=== PATIENT | male | born 1950 | race Caucasian/White ===

== ENCOUNTER 2018-07-13 08:13 | Day surgery (SDC) | payer OTHER ==
[2018-07-06 18:02] VITALS: BMI 28.2
[2018-07-13 08:49] VITALS: TEMP 97.6
[2018-07-13] MEDS ORDERED: PROPOFOL 20 ML ONE ×3 (09:04)
[2018-07-13 10:07] VITALS: BP 122/76; PULSE 87
--- NOTE | 2018-07-15 16:36 | PATH ---
Surgical Pathology Report Patient Name: LAZARO LUGO [facility]. Rec. #: [id number] /Age/Gender: 1950 (Age: 67) / M Account: [id number] Location: [facility] Taken: 07/13/2018 Received: 07/13/2018 Reported: 07/15/2018 Physicians: Adna Muhammad M.D. Specimen(s) Received TRANSVERSE COLON Clinical History Colon screening Postoperative diagnosis: Polyp, diverticulosis Final Diagnosis TRANSVERSE COLON, POLYP, BIOPSY: TUBULAR ADENOMA. Electronically Signed Yelena Garduno M.D. Gross Description Received in formalin, labeled "polyp transverse colon" are 4 peralta, irregular portions of soft tissue ranging from 0.2-0.4 cm. in greatest dimension. The specimens are submitted in toto in one cassette. 07/13/201807/13/2018
== END 2018-07-13 10:10 | disposition home or self-care (01) ==
LOC: FASU-ENDO 08:13
PROVIDERS: ATTEND Internal Medicine Gastroenterology
PROC: 0DBL8ZX Excision of Transverse Colon, Via Natural or Artificial Opening Endoscopic, Diagnostic (ICD-10-PCS; principal; 2018-07-13 09:00)
DX: Z86.010 Personal history of colon polyps (principal); Z80.0 Family history of malignant neoplasm of digestive organs; D12.3 Benign neoplasm of transverse colon; K57.30 Diverticulosis of large intestine without perforation or abscess without bleeding
CPT/HCPCS: 88305-TC

== ENCOUNTER 2019-09-21 16:52 | Inpatient (IN) | payer OTHER ==
[2019-09-21] MEDS ORDERED: ACETAMINOPHEN 1000 MG/100 ML VIAL (NON FORMULARY) IVPB ONE (17:48)
--- NOTE | 2019-09-21 17:48 | PDOC ---
History of Present Illness - General Chief Complaint: Injury Stated Complaint: LEFT HIP PAIN Time Seen by Provider: 09/21/19 17:36 History Source: Patient Exam Limitations: No Limitations - History of Present Illness Initial Comments: 09/21/19 17:47 Mr. Siegel is a 68 yo M who presents to the ER with a complaint of hip pain Pt has a past medical history of Afib on coumadin, HTN, HLD, and colon polyps Pt states that he slipped on ice on Friday and fell onto his bottom He denies head trauma, loc, amnesia He denies focal weakness or numbness palpitations, chest pain, vertigo, dizziness prior to falling Since his fall he is noted pain, difficulty with ambulation. He has been using a cane to assist with walking. Since falling actually he is noticed that when he stands he feels dizzy Unfortunately he fell again today. He fell forward landing on his hands Pain is described as sharp, severe when he ambulates, rated 8/10 No radiation down the leg No radiation of the lower back No actual bruising on the skin noted PCP: En, Cardio: Dr. Almaguer PMH: Afib on warfarin, s/p cardioversion x 2, HTN, HLD, colon polyps PSH: Denies Social History: Smoking: pipe, Alcohol: former heavy drinker, Drugs: pt denies Family History: Noncontributory Allergies: PCN --> swelling GENERAL/CONSTITUTIONAL: No: fever, chills, weakness, loss of appetite. HEAD, EYES, EARS, NOSE AND THROAT: No: change in vision, ear pain, discharge, sore throat, throat swelling. CARDIOVASCULAR: No: chest pain, lightheadedness, palpitations, syncope RESPIRATORY: No: cough, shortness of breath, wheezing, hemoptysis, stridor. GASTROINTESTINAL: No: nausea, vomiting, diarrhea, abdominal cramping, rectal bleeding, constipation. GENITOURINARY: No: dysuria, hematuria, frequency, urgency, flank pain. MUSCULOSKELETAL: No: back pain, neck pain, joint pain, muscle swelling or pain SKIN AND BREASTS: No: lesions, pallor, rash or easy bruising. NEUROLOGIC: No: headache, vertigo, paresthesias, weakness ENDOCRINE: No: unexplained weight gain or loss HEMATOLOGIC/LYMPHATIC: No: anemia, easy bleeding, swelling nodes. PE: GENERAL: The patient is in no acute distress. HEAD: Normal with no signs of trauma. EYES: PERRLA, EOMI, sclera anicteric, conjunctiva clear. ENT: Ears normal, nares patent, oropharynx clear without exudates. Moist mucous membranes. NECK: Normal range of motion, no midline tenderness to palpation LUNGS: Breath sounds equal, clear to auscultation bilaterally. No wheezes, and no crackles. HEART: Irregularly irregular, no murmur noted ABDOMEN: Soft, nontender, normoactive bowel sounds. No guarding, no rebound. Pelvis is stable EXTREMITIES: Right lower extremity: Normal range of motion, soft compartments, no difficulty with hip flexion, knee flexion, flexion of the ankles Left lower extremity: Very tight/firm buttock compartment, limited range of motion secondary to pain, sensation intact warm extremities, cap refill less than 2 seconds No lower extremity edema NEUROLOGICAL: Cranial nerves II through XII grossly intact. Normal speech. No focal neurological deficits. MUSCULOSKELETAL: Back non-tender to palpation SKIN: No bruising noted Past History - Past Medical History Allergies/Adverse Reactions: Allergies Allergy/AdvReac Type Severity Reaction Status Date / Time Penicillins Allergy Intermediate Swelling Verified 09/21/19 16:54 Home Medications: Ambulatory Orders Lisinopril 20 mg PO DAILY 09/15/15 Atorvastatin Ca [Lipitor] 10 mg PO DAILY 05/10/18 Carvedilol [Coreg -] 25 mg PO BID 05/10/18 Cholecalciferol (Vitamin D3) [Vitamin D3] 4,000 unit PO DAILY 05/10/18 Hydrochlorothiazide [Hctz -] 25 mg PO DAILY 05/10/18 Warfarin Na [Coumadin -] 7.5 mg PO SUTUWETHSA 05/10/18 Warfarin Na [Coumadin -] 10 mg PO MOFR 05/10/18 Anemia: No Asthma: No Cancer: No Cardiac Disorders: Yes (ATRIAL FIBRILLATION) CVA: No COPD: No CHF: No DVT: No Dementia: No Diabetes: No GI Disorders: Yes (COLONIC POLYPS) Disorders: No HTN: Yes Hypercholesterolemia: Yes Liver Disease: No Psychiatric Problems: Yes (DEPRESSION) Seizures: No Thyroid Disease: No - Surgical History Abdominal Surgery: No Appendectomy: No Cardiac Surgery: Yes (CARDIOVERSION X2) Cholecystectomy: No Lung Surgery: No Neurologic Surgery: No Orthopedic Surgery: No - Immunization History Immunization Up to Date: No - Psycho Social/Smoking Cessation Hx Smoking History: Former smoker Have you smoked in the past 12 months: Yes Number of Cigarettes Smoked Daily: 0 If you are a former smoker, when did you quit?: PIPE SMOKER Cigars Per Day: 0 Information on smoking cessation initiated: Yes 'Breaking Loose' booklet given: 11/15/13 Hx Alcohol Use: No Drug/Substance Use Hx: No Substance Use Type: None Hx Substance Use Treatment: No *Physical Exam - Vital Signs Last Vital Signs Temp Pulse Resp BP Pulse Ox 97.8 F 95 H 18 151/80 100 09/21/19 16:52 09/21/19 16:52 09/21/19 16:52 09/21/19 16:52 09/21/19 16:52 ED Treatment Course - LABORATORY CBC & Chemistry Diagram: 09/22/19 07:20 09/22/19 07:20 - RADIOLOGY Radiology Studies Ordered: Category Date Time Status HIP & PELVIS-LEFT [RAD] Stat Radiology 09/21/19 17:03 Ordered Medical Decision Making - Medical Decision Making 09/21/19 17:56 Mr. Siegel is a 68-year-old gentleman with a history of A. fib on Coumadin who is status post a fall on Friday Patient's examination is concerning for a muscular hematoma It is not clear to me if patient's pain and difficulty ambulation is secondary to hematoma of the buttock and thigh Or If patient's hematoma is secondary to an occult fracture which is what is actually making it difficult for her to ambulate In addition Patient is dizzy with standing Unclear if this is secondary to orthostasis due to anemia Therefore: Will do lab EKG X-ray pelvis CT head Tylenol IV for pain Reassess 09/21/19 18:45 Laboratory Tests 09/21/19 09/21/19 18:15 18:15 WBC 13.8 H Hgb 11.1 L Hct 32.1 L D Plt Count 209 INR 6.28 H* CMP pending CT pending Pt signed out to Dr. Galeana Discharge - Discharge Information Problems reviewed: Yes Clinical Impression/Diagnosis: Warfarin-induced coagulopathy Traumatic hematoma of buttock Qualifiers: Encounter type: initial encounter Qualified Code(s): S30.0XXA - Contusion of lower back and pelvis, initial encounter Condition: Stable - Follow up/Referral - Patient Discharge Instructions - Post Discharge Activity
[2019-09-21] MEDS ORDERED: ACETAMINOPHEN INJECTION 100 ML IVPB ONE (18:19)
[2019-09-21 18:30] LABS: BASO % 0.1 % (0-2.0); HEMATOCRIT 32.1 % (35.4-49); HEMOGLOBIN 11.1 GM/dl (11.7-16.9); LYMPH % 3.8 % (8-40); MCH 29.4 pg (25.7-33.7); MCHC 34.6 g/dl (32.0-35.9); MEAN CELL VOLUME 85.1 fl (80-96); MEAN PLT VOLUME 7.9 fl (7.5-11.1); MONO % 7.8 % (3.8-10.2); NEUT % 88.3 % (42.8-82.8); PLATELET COUNT 209 K/MM3 (134-434); RBC 3.77 M/mm3 (4.00-5.60); RDW 13.9 % (11.9-15.9); WHITE BLOOD COUNT 13.8 K/mm3 (4.0-10.8)
[2019-09-21 18:40] LABS: PROTHROMBIN TIME (PATIENT) 67.8 SEC (10.2-13.0)
[2019-09-21 18:43] LABS: INR 6.28 (0.82-1.09)
[2019-09-21 18:45] LABS: ALBUMIN 3.4 g/dl (3.4-5.0); CALCIUM 8.3 mg/dl (8.5-10); POTASSIUM 3.4 mmol/L (3.5-5.1); TOT PROT 6.1 g/dl (6.4-8.2)
--- NOTE | 2019-09-21 19:40 | PDOC ---
*Physical Exam - Vital Signs Last Vital Signs Temp Pulse Resp BP Pulse Ox 97.8 F 69 18 127/81 98 09/21/19 16:52 09/21/19 18:34 09/21/19 18:34 09/21/19 18:34 09/21/19 18:34 ED Treatment Course - LABORATORY CBC & Chemistry Diagram: 09/21/19 18:15 09/21/19 18:15 - ADDITIONAL ORDERS Additional order review: Laboratory Results 09/21/19 09/21/19 09/21/19 18:15 18:15 18:15 PT with INR 67.8 H INR 6.28 H* Sodium 138 Potassium 3.4 L Chloride 104 Carbon Dioxide 27 Anion Gap 7 L BUN 22.0 H Creatinine 1.0 Est GFR (CKD-EPI)AfAm 89.23 Est GFR (CKD-EPI)NonAf 76.99 Random Glucose 133 H Calcium 8.3 L Total Bilirubin 1.0 AST 18 ALT 13 Alkaline Phosphatase 52 Creatine Kinase 217 Creatine Kinase Index 1.0 CK-MB (CK-2) 2.2 Troponin I < 0.03 Total Protein 6.1 L Albumin 3.4 09/21/19 18:15 RBC 3.77 L MCV 85.1 MCHC 34.6 RDW 13.9 MPV 7.9 Neutrophils % 88.3 H Lymphocytes % 3.8 L D Monocytes % 7.8 Eosinophils % 0.0 D Basophils % 0.1 - Medications Given in the ED: ED Medications Discontinued Medications Generic Name Dose Route Start Last Admin Trade Name Freq PRN Reason Stop Dose Admin Acetaminophen 1,000 mg 09/21/19 17:48 09/21/19 18:58 Ofirmev Injection - IVPB 09/21/19 17:49 1,000 mg ONCE ONE Administration Medical Decision Making - Medical Decision Making 09/21/19 21:00 Care of this patient received from Dr. Ye. He is undergoing evaluation of painful swelling in the left buttock after a fall 2 days ago. The patient has supratherapeutic INR of 6.28. Patient has some residual pain after IV acetaminophen. Small dose of morphine (2 mg IV) given prior to pelvic CT with IV contrast. 09/21/19 22:40 Interpretation of the pelvic CT with IV contrast by Dr. Davila of the radiology staff: Asymmetric enlargement of left buttock muscle with heterogeneous attenuation and small hyperdense foci compatible with a clinical history of a large hematoma. No drainable collection identified /no gross fracture identified. Because patient has supratherapeutic INR with bleeding into his buttock muscle, vitamin K 5 mg IVPB administered He continues to have pain after morphine 2 mg IV dose 09/21/19 23:50 Case discussed with TARA Ness; patient will be admitted to Dr. Dozier's service for continued observation, monitoring of INR, pain control. Patient feels significant decrease in pain after morphine 4 mg IV; IV hydration with normal saline continues Discharge - Discharge Information Problems reviewed: Yes Clinical Impression/Diagnosis: Warfarin-induced coagulopathy Traumatic hematoma of buttock Qualifiers: Encounter type: initial encounter Qualified Code(s): S30.0XXA - Contusion of lower back and pelvis, initial encounter Condition: Stable - Admission Yes - Follow up/Referral Referrals: Larry Gatica MD [Primary Care Provider] - - Patient Discharge Instructions - Post Discharge Activity
[2019-09-21] MEDS ORDERED: morphine CARPU-JECT 2 MG/1 ML DISP.SYRIN IVPUSH ONE (20:36)
[2019-09-21] MEDS ORDERED: morphine SULFATE 4 MG/ML VIAL ONE ×2 (20:40→22:46)
[2019-09-21] MEDS ORDERED: PHYTONADIONE 10 MG/1 ML AMP IVPB ONE (22:39)
[2019-09-21] MEDS ORDERED: PHYTONADIONE 10 MG/1 ML AMP ONE (22:46)
[2019-09-21] MEDS ORDERED: morphine CARPU-JECT 4 MG/1 ML DISP.SYRIN IVPUSH ONE (23:15)
[2019-09-21] MEDS ORDERED: SODIUM CHLORIDE 1,000 ML IV STA (23:30)
[2019-09-22] MEDS ORDERED: POTASSIUM CHLORIDE TABS 20 MEQ TABLET.ER (FP) PO ONE (00:31)
[2019-09-22] MEDS: POTASSIUM CHLORIDE TABS 20 MEQ TABLET.ER (FP) PO SCH ×2 (00:36→05:54)
[2019-09-22 01:04] VITALS: BMI 29.8
[2019-09-22] MEDS: oxyCODONE HCL 5 MG TABLET PO PRN ×4 (01:11→23:54)
[2019-09-22 08:05] LABS: BASO % 0.2 % (0-2.0); EOS % 0.1 % (0-4.5); HEMATOCRIT 27.7 % (35.4-49); HEMOGLOBIN 9.3 GM/dl (11.7-16.9); LYMPH % 8.8 % (8-40); MCH 28.7 pg (25.7-33.7); MCHC 33.5 g/dl (32.0-35.9); MEAN CELL VOLUME 85.8 fl (80-96); MEAN PLT VOLUME 8.7 fl (7.5-11.1); MONO % 11.5 % (3.8-10.2); NEUT % 79.4 % (42.8-82.8); PLATELET COUNT 207 K/MM3 (134-434); RBC 3.22 M/mm3 (4.00-5.60); RDW 13.8 % (11.9-15.9)
[2019-09-22 08:12] LABS: CALCIUM 7.9 mg/dl (8.5-10); CREATININE 0.9 mg/dl (0.55-1.3); MAGNESIUM 2.2 mg/dL (1.8-2.4); PHOSPHOROUS 2.4 mg/dl (2.5-4.9); POTASSIUM 3.7 mmol/L (3.5-5.1)
[2019-09-22 08:34] LABS: INR 2.07 (0.82-1.09); PROTHROMBIN TIME (PATIENT) 22.9 SEC (10.2-13.0)
[2019-09-22] MEDS: HYDROCHLOROTHIAZIDE 25 MG TABLET (FP) PO SCH (10:03)
[2019-09-22] MEDS: CARVEDILOL 25 MG TABLET (FP) PO SCH ×2 (10:03→21:32)
[2019-09-22] MEDS: LISINOPRIL 10 MG TABLET (FP) PO SCH (10:03)
[2019-09-22] MEDS: ACETAMINOPHEN 325 MG TABLET (FP) PO PRN ×3 (10:04→23:55)
--- NOTE | 2019-09-22 10:06 | HP ---
Documentation entered by Tere Skinner SCRIBE, acting as scribe for Antoinette Shukla NP. CHIEF COMPLAINT: Left hip pain PCP: Cardiology: Dr. Almaguer HISTORY OF PRESENT ILLNESS: 68 year-old male with a PMH significant for atrial fibrillation on coumadin who presented to the ED for evaluation following two falls. The first fall was on 09/19, he slipped on the ice and fell on his left buttock/hip. He fell a second time on 09/21. He fell forward landing on his hands. On neither occasion did he hit his head and there was no LOC. Patient describes the pain in his left hip as sharp and severe with ambulation, 04/10. It does not radiate. He has experienced lightheadedness with standing. ER course was notable for: (1) WBC 13.8k (2) Hgb 11.1 (baseline 15.8) (3) INR 6.2 Recent Travel: None reported. PAST MEDICAL HISTORY: Hypertension Hyperlipidemia Atrial fibrillation Colon polyps PAST SURGICAL HISTORY: Cardioversion x 2 Social History: Patient is a retired traveling storekeeper. Smoking: pipe Alcohol: former heavy drinker Drugs: denies Family history: Mother age 84, kidney disease, h/o HTN Father age 75, MIs, CHF Brother in his 50s, cardiac: enlarged heart and HF One brother alive with HTN, one alive and well Allergies Penicillins Allergy (Intermediate, Verified 09/21/19 16:54) Swelling HOME MEDICATIONS: Home Medications Medication Instructions Recorded Lisinopril 20 mg PO DAILY 09/15/15 Atorvastatin Ca [Lipitor] 10 mg PO DAILY 05/10/18 Carvedilol [Coreg -] 25 mg PO BID 05/10/18 Cholecalciferol (Vitamin D3) 4,000 unit PO DAILY 05/10/18 [Vitamin D3] Hydrochlorothiazide [Hctz -] 25 mg PO DAILY 05/10/18 Warfarin Na [Coumadin -] 7.5 mg PO SUTUWETHSA 05/10/18 Warfarin Na [Coumadin -] 10 mg PO MOFR 05/10/18 REVIEW OF SYSTEMS CONSTITUTIONAL: Absent: fever, chills, diaphoresis, generalized weakness, malaise, loss of appetite, weight change HEENT: Absent: rhinorrhea, nasal congestion, throat pain, throat swelling, difficulty swallowing, mouth swelling, ear pain, eye pain, visual changes CARDIOVASCULAR: Absent: chest pain, syncope, palpitations, irregular heart rate, lightheadedness , peripheral edema RESPIRATORY: Absent: cough, shortness of breath, dyspnea with exertion, orthopnea, wheezing, stridor, hemoptysis GASTROINTESTINAL: Absent: abdominal pain, abdominal distension, nausea, vomiting, diarrhea, constipation, melena, hematochezia GENITOURINARY: Absent: dysuria, frequency, urgency, hesitancy, hematuria, flank pain, genital pain MUSCULOSKELETAL:+hip pain. Absent: myalgia, arthralgia, joint swelling, back pain, neck pain SKIN: Absent: rash, itching, pallor HEMATOLOGIC/IMMUNOLOGIC: Absent: easy bleeding, easy bruising, lymphadenopathy, frequent infections ENDOCRINE: Absent: unexplained weight gain, unexplained weight loss, heat intolerance, cold intolerance NEUROLOGIC: Absent: headache, focal weakness or paresthesias, dizziness, unsteady gait, seizure, mental status changes, bladder or bowel incontinence PSYCHIATRIC: Absent: anxiety, depression, suicidal or homicidal ideation, hallucinations. PHYSICAL EXAMINATION Vital Signs - 24 hr 09/21/19 09/21/19 09/21/19 16:52 18:34 20:50 Temperature 97.8 F Pulse Rate 95 H Pulse Rate [ 69 98 H Left Apical] Respiratory 18 18 19 Rate Blood Pressure 151/80 Blood Pressure 127/81 153/99 [Right Arm] O2 Sat by Pulse 100 98 99 Oximetry (%) 09/21/19 09/22/19 09/22/19 23:15 00:48 00:55 Temperature 98.1 F Pulse Rate 100 H Pulse Rate [ 102 H Left Apical] Respiratory 15 16 Rate Blood Pressure 152/84 Blood Pressure 140/91 [Right Arm] O2 Sat by Pulse 100 99 Oximetry (%) 09/22/19 09/22/19 04:00 06:13 Temperature 98.2 F Pulse Rate 96 H Pulse Rate [ Left Apical] Respiratory 18 Rate Blood Pressure 114/63 Blood Pressure [Right Arm] O2 Sat by Pulse 99 Oximetry (%) GENERAL: Awake, alert, and fully oriented, in no acute distress. HEAD: Normal with no signs of trauma. EYES: Pupils equal, round and reactive to light, extraocular movements intact, sclera anicteric, conjunctiva clear. LUNGS: Breath sounds equal, clear to auscultation bilaterally. No wheezes, and no crackles. No accessory muscle use. HEART: Regular rate and rhythm, normal S1 and S2 ABDOMEN: Soft, nontender, not distended MUSCULOSKELETAL: Normal range of motion at all joints. No bony deformities or tenderness. No CVA tenderness. UPPER EXTREMITIES: 2+ pulses, warm, well-perfused. No cyanosis. No clubbing. No peripheral edema. LOWER EXTREMITIES: 2+ pulses, warm, well-perfused. No calf tenderness. No peripheral edema; left buttock is swollen and firm, no skin discoloration of buttock or LLE NEUROLOGICAL: Cranial nerves II-XII intact. Normal speech. Laboratory Results - last 24 hr 09/21/19 09/21/19 09/21/19 18:15 18:15 18:15 WBC 13.8 H RBC 3.77 L Hgb 11.1 L Hct 32.1 L D MCV 85.1 MCH 29.4 MCHC 34.6 RDW 13.9 Plt Count 209 MPV 7.9 Absolute Neuts (auto) 12.2 Neutrophils % 88.3 H Lymphocytes % 3.8 L D Monocytes % 7.8 Eosinophils % 0.0 D Basophils % 0.1 PT with INR INR Sodium 138 Potassium 3.4 L Chloride 104 Carbon Dioxide 27 Anion Gap 7 L BUN 22.0 H Creatinine 1.0 Est GFR (CKD-EPI)AfAm 89.23 Est GFR (CKD-EPI)NonAf 76.99 Random Glucose 133 H Calcium 8.3 L Phosphorus Magnesium Total Bilirubin 1.0 AST 18 ALT 13 Alkaline Phosphatase 52 Creatine Kinase 217 Creatine Kinase Index 1.0 CK-MB (CK-2) 2.2 Troponin I < 0.03 Total Protein 6.1 L Albumin 3.4 Alcohol, Quantitative Blood Type Antibody Screen 09/21/19 09/21/19 09/22/19 18:15 18:15 01:00 WBC RBC Hgb Hct MCV MCH MCHC RDW Plt Count MPV Absolute Neuts (auto) Neutrophils % Lymphocytes % Monocytes % Eosinophils % Basophils % PT with INR 67.8 H INR 6.28 H* Sodium Potassium Chloride Carbon Dioxide Anion Gap BUN Creatinine Est GFR (CKD-EPI)AfAm Est GFR (CKD-EPI)NonAf Random Glucose Calcium Phosphorus Magnesium Total Bilirubin AST ALT Alkaline Phosphatase Creatine Kinase Creatine Kinase Index CK-MB (CK-2) Troponin I Total Protein Albumin Alcohol, Quantitative < 3 Blood Type A POSITIVE Antibody Screen Negative 09/22/19 09/22/19 07:20 07:20 WBC 13.0 H RBC 3.22 L Hgb 9.3 L Hct 27.7 L MCV 85.8 MCH 28.7 MCHC 33.5 RDW 13.8 Plt Count 207 MPV 8.7 D Absolute Neuts (auto) 10.4 Neutrophils % 79.4 Lymphocytes % 8.8 D Monocytes % 11.5 H Eosinophils % 0.1 D Basophils % 0.2 PT with INR INR Sodium 133 L Potassium 3.7 Chloride 104 Carbon Dioxide 26 Anion Gap 3 L BUN 22.0 H Creatinine 0.9 Est GFR (CKD-EPI)AfAm 101.36 Est GFR (CKD-EPI)NonAf 87.45 Random Glucose 115 H Calcium 7.9 L Phosphorus 2.4 L Magnesium 2.2 Total Bilirubin AST ALT Alkaline Phosphatase Creatine Kinase Creatine Kinase Index CK-MB (CK-2) Troponin I Total Protein Albumin Alcohol, Quantitative Blood Type Antibody Screen ASSESSMENT/PLAN: 68 year-old male with a PMH significant for atrial fibrillation on coumadin with a supratherapeutic INR s/p two falls. Admitted for left buttock hematoma. Left buttock hematoma s/p fall while on anticoagulant --09/21 CT pelvis: asymmetric enlargement of left buttock muscles with large hematoma; no gross organized drainable collection or hematoma --surgery consult requested --warm compresses q2h --PO meds for pain Elevated INR --INR 6.2 on admission, given one dose Vit K in ED, now 2.08 --hold anti-coagulation --recheck INR Anemia secondary to bleeding in setting of fall on anticoagulation --monitor h/h DVT prophylaxis: INR supratherapeutic, hold coumadin Visit type - Emergency Visit Emergency Visit: Yes ED Registration Date: 09/21/19 Care time: The patient presented to the Emergency Department on the above date and was hospitalized for further evaluation of their emergent condition. - New Patient This patient is new to me today: Yes Date on this admission: 09/25/19 - Critical Care Critical Care patient: No Antoinette Shukla, BANK CASHIER: This documentation has been prepared by the Brody cho Maria, SCRIBE, under my direction and personally reviewed by me in its entirety. I confirm that the documentation accurately reflects all work, treatment, procedures, and medical decision making performed by me.
--- NOTE | 2019-09-22 10:29 | EKG ---
Test Reason : Blood Pressure : / mmHG Vent. Rate : 095 BPM Atrial Rate : 104 BPM P-R Int : 000 ms QRS Dur : 108 ms QT Int : 364 ms P-R-T Axes : 000 -36 041 degrees QTc Int : 457 ms ATRIAL FIBRILLATION WITH PREMATURE VENTRICULAR OR ABERRANTLY CONDUCTED COMPLEXES LEFT AXIS DEVIATION INCOMPLETE RIGHT BUNDLE BRANCH BLOCK SEPTAL INFARCT (CITED ON OR BEFORE 11-MAY-2018) ABNORMAL ECG WHEN COMPARED WITH ECG OF 11-MAY-2018 06:09, QUESTIONABLE CHANGE IN INITIAL FORCES OF SEPTAL LEADS Confirmed by PEEWEE SAMPSON MD ([id number]) on 09/22/2019 10:29:17 AM Referred By: DR GREGG Confirmed By:PEEWEE SAMPSON MD
--- NOTE | 2019-09-22 16:00 | CONSULT ---
- Consultation REQUESTING PROVIDER: Vazquez Gericare Aide Teacher CONSULT REQUEST: We have been asked to surgically evaluate this patient for e/m of a right buttock hematoma. PCP:Antoinette Shukla HISTORY OF PRESENT ILLNESS: KEEGAN who is a 68 y/o male on Coumadin who slipped on the ice and fell on his left side; he did not hit his head/have LOC nor sustain any fx's. h/e he developed a painful left buttock mass clinically and radiographically c/w a buttock hematoma. PMHx: HTN/HLD/CAD/A fib PSHx: none Home Medications Medication Instructions Recorded Lisinopril 20 mg PO DAILY 09/15/15 Atorvastatin Ca [Lipitor] 10 mg PO DAILY 05/10/18 Carvedilol [Coreg -] 25 mg PO BID 05/10/18 Cholecalciferol (Vitamin D3) 4,000 unit PO DAILY 05/10/18 [Vitamin D3] Hydrochlorothiazide [Hctz -] 25 mg PO DAILY 05/10/18 Warfarin Na [Coumadin -] 7.5 mg PO SUTUWETHSA 05/10/18 Warfarin Na [Coumadin -] 10 mg PO MOFR 05/10/18 Allergies Allergy/AdvReac Type Severity Reaction Status Date / Time Penicillins Allergy Intermediate Swelling Verified 09/21/19 16:54 REVIEW OF SYSTEMS: CONSTITUTIONAL: Absent: fever, chills, diaphoresis, generalized weakness, malaise, loss of appetite, weight change CARDIOVASCULAR: Absent: chest pain, syncope, palpitations, irregular heart rate, lightheadedness , peripheral edema RESPIRATORY: Absent: cough, shortness of breath, dyspnea with exertion, wheezing, stridor, hemoptysis GASTROINTESTINAL: Absent: abdominal pain, abdominal distension, nausea, vomiting, diarrhea, constipation, melena, hematochezia GENITOURINARY: Absent: dysuria, frequency, urgency, hesitancy, hematuria, flank pain, genital pain MUSCULOSKELETAL: Absent: myalgia, arthralgia, joint swelling, back pain, neck pain SKIN: Absent: rash, itching, pallor HEMATOLOGIC/IMMUNOLOGIC: Absent: easy bleeding, easy bruising, lymphadenopathy NEUROLOGIC: Absent: headache, focal weakness, paresthesias, dizziness, unsteady gait, seizure, mental status changes, bladder or bowel incontinence PSYCHIATRIC: Absent: anxiety, depression, suicidal or homicidal ideation, hallucinations. PHYSICAL EXAM: GENERAL: Awake, alert, and fully oriented, in no acute distress. HEAD: Normal with no signs of trauma. EYES: PERRL, sclera anicteric, conjunctiva clear. NECK: Normal ROM, supple without lymphadenopathy, JVD, or masses. ABDOMEN: Soft, nontender, not distended, normoactive bowel sounds, no guarding, no rebound, no masses. No organomegaly. MUSCULOSKELETAL: Normal ROM at all joints. No bony deformities or tenderness. No CVA tenderness. UPPER EXTREMITIES: 2+ pulses, warm, well-perfused. No cyanosis. Cap refill <2 seconds. No peripheral edema. LOWER EXTREMITIES: 2+ pulses, warm, well-perfused. No calf tenderness. No peripheral edema. NEUROLOGICAL: Normal speech, gait not observed. PSYCH: Cooperative. Good eye contact. Appropriate mood and affect. SKIN: Warm, dry, normal turgor, no rashes or lesions noted. BUTTOCK: left skin normal w/r/t/t/t and color; no ecchymosis; firm mass present c/w deep hematoma; o/w negative; area is fim and ttp. Vital Signs Temperature 97.7 F 09/22/19 14:00 Pulse Rate 85 09/22/19 14:00 Respiratory Rate 19 09/22/19 14:00 Blood Pressure 92/50 L 09/22/19 14:00 O2 Sat by Pulse Oximetry (%) 100 09/22/19 14:00 Lab Results WBC 13.0 K/mm3 (4.0-10.8) H 09/22/19 07:20 RBC 3.22 M/mm3 (4.00-5.60) L 09/22/19 07:20 Hgb 9.3 GM/dl (11.7-16.9) L 09/22/19 07:20 Hct 27.7 % (35.4-49) L 09/22/19 07:20 MCV 85.8 fl (80-96) 09/22/19 07:20 MCHC 33.5 g/dl (32.0-35.9) 09/22/19 07:20 RDW 13.8 % (11.9-15.9) 09/22/19 07:20 Plt Count 207 K/MM3 (134-434) 09/22/19 07:20 Sodium 133 mmol/L (136-145) L 09/22/19 07:20 Potassium 3.7 mmol/L (3.5-5.1) 09/22/19 07:20 Chloride 104 mmol/L (98-107) 09/22/19 07:20 Carbon Dioxide 26 mmol/L (21-32) 09/22/19 07:20 Anion Gap 3 MMOL/L (8-16) L 09/22/19 07:20 BUN 22.0 mg/dl (7-18) H 09/22/19 07:20 Creatinine 0.9 mg/dl (0.55-1.3) 09/22/19 07:20 Random Glucose 115 mg/dl (74-106) H 09/22/19 07:20 Calcium 7.9 mg/dl (8.5-10) L 09/22/19 07:20 Blood Type A POSITIVE 09/22/19 06:55 Antibody Screen Negative 09/22/19 06:55 INR 2.07 (0.82-1.09) H 09/22/19 07:20 CT scan a/p reviewed. IMP; left buttock hematoma post traumatic in nature and exacerbated by anticoagulation/elevated INR. PLAN: Provide for analgesia; monitor h/h; moist heat; hold/reverse elevated INR. Nicola Mckenna MD FACS/
[2019-09-22] MEDS ORDERED: WARFARIN NA 5 MG TABLET (UD) PO SCH (18:00)
[2019-09-22] MEDS: ATORVASTATIN CA 10 MG TABLET (FP) PO SCH (21:32)
[2019-09-23] MEDS ORDERED: SODIUM CHLORIDE 1,000 ML IV STA ×2 (10:15→11:47)
[2019-09-23 10:58] LABS: BASO % 0.3 % (0-2.0); HEMATOCRIT 23.6 % (35.4-49); LYMPH % 11.6 % (8-40); MCH 28.8 pg (25.7-33.7); MCHC 33.5 g/dl (32.0-35.9); MEAN CELL VOLUME 85.9 fl (80-96); MEAN PLT VOLUME 7.9 fl (7.5-11.1); MONO % 9.1 % (3.8-10.2); PLATELET COUNT 204 K/MM3 (134-434); RBC 2.75 M/mm3 (4.00-5.60); RDW 14.3 % (11.9-15.9); WHITE BLOOD COUNT 8.6 K/mm3 (4.0-10.8)
[2019-09-23 10:59] LABS: INR 1.48 (0.82-1.09); PROTHROMBIN TIME (PATIENT) 16.4 SEC (10.2-13.0)
[2019-09-23 11:03] LABS: ALBUMIN 2.7 g/dl (3.4-5.0); BILIRUBIN,TOTAL 0.8 mg/dl (0.2-1); CALCIUM 8.3 mg/dl (8.5-10); CREATININE 1.1 mg/dl (0.55-1.3); POTASSIUM 3.7 mmol/L (3.5-5.1)
[2019-09-23 11:16] LABS: HEMOGLOBIN 7.9 GM/dl (11.7-16.9)
[2019-09-23] MEDS ORDERED: FUROSEMIDE 40 MG/4 ML INJECTABLE VIAL IVPUSH ONE (17:02)
--- NOTE | 2019-09-23 17:03 | PN ---
Documentation entered by Tere Skinner SCRIBE, acting as scribe for Antoinette Shukla NP. Physical Exam: SUBJECTIVE: Patient seen and examined at bedside. Pt reports he is able to move around a little bit more than yesterday. He describes his pain as a 2-3 in severity. OBJECTIVE: Vital Signs Period Temp Pulse Resp BP Sys/Toussaint Pulse Ox Last 24 Hr 97.7 F-98.3 F 85-98 17-19 92-109/50-70 97-100 GENERAL: Awake, alert, and fully oriented, in no acute distress. HEAD: Normal with no signs of trauma. EYES: Pupils equal, round and reactive to light, extraocular movements intact, sclera anicteric, conjunctiva clear. LUNGS: Breath sounds equal, clear to auscultation bilaterally. No wheezes, and no crackles. No accessory muscle use. HEART: Regular rate and rhythm, normal S1 and S2 ABDOMEN: Soft, nontender, not distended MUSCULOSKELETAL: Normal range of motion at all joints. No bony deformities or tenderness. No CVA tenderness. UPPER EXTREMITIES: 2+ pulses, warm, well-perfused. No cyanosis. No clubbing. No peripheral edema. LOWER EXTREMITIES: 2+ pulses, warm, well-perfused. No calf tenderness. No peripheral edema; left buttock is swollen and firm, evolving ecchymosis left lateral thigh Laboratory Results - last 24 hr 09/22/19 09/22/19 06:55 07:20 PT with INR 22.9 H INR 2.07 H Blood Type A POSITIVE Antibody Screen Negative Active Medications Generic Name Dose Route Start Last Admin Trade Name Freq PRN Reason Stop Dose Admin Acetaminophen 650 mg 09/21/19 23:59 09/22/19 23:55 Tylenol - PO 650 mg Q6H PRN Administration PAIN LEVEL 1-5 Atorvastatin Calcium 10 mg 09/22/19 22:00 09/22/19 21:32 Lipitor - PO 10 mg HS [facility] Administration Carvedilol 25 mg 09/22/19 10:00 09/22/19 21:32 Coreg - PO 25 mg BID [facility] Administration Hydrochlorothiazide 25 mg 09/22/19 10:00 09/22/19 10:03 Hctz - PO 25 mg DAILY [facility] Administration Lisinopril 20 mg 09/22/19 10:00 09/22/19 10:03 Prinivil PO 20 mg DAILY [facility] Administration Oxycodone HCl 5 mg 09/21/19 23:59 09/22/19 23:54 Roxicodone - PO 5 mg Q6H PRN Administration PAIN LEVEL 6-10 Warfarin Sodium 5 mg 09/22/19 18:00 09/22/19 21:32 Coumadin - PO 5 mg DAILY@1800 D[facility] Administration ASSESSMENT/PLAN: 68 year-old male with a PMH significant for atrial fibrillation on coumadin with a supratherapeutic INR s/p two falls. Admitted for left buttock hematoma. Left buttock hematoma s/p fall while on anticoagulant --09/21 CT pelvis: asymmetric enlargement of left buttock muscles with large hematoma; no gross organized drainable collection or hematoma --seen and evaluated by surgery: no surgical intervention at this time --warm compresses q2h --pain management Elevated INR --INR 6.2 on admission, given one dose Vit K in ED, now 1.48 --daily INR checks Anemia secondary to bleeding in setting of fall on anticoagulation --h/h stable, restart coumadin DVT prophylaxis: INR supratherapeutic, hold coumadin Visit type - Emergency Visit Emergency Visit: Yes ED Registration Date: 09/21/19 Care time: The patient presented to the Emergency Department on the above date and was hospitalized for further evaluation of their emergent condition. - New Patient This patient is new to me today: No - Critical Care Critical Care patient: No Antoinette Shukla, [employer]: This documentation has been prepared by the Brody cho Maria, SCRIBE, under my direction and personally reviewed by me in its entirety. I confirm that the documentation accurately reflects all work, treatment, procedures, and medical decision making performed by me.
[2019-09-23] MEDS ORDERED: WARFARIN NA 7.5 MG TABLET (FP) PO SCH (18:00)
[2019-09-23] MEDS: CARVEDILOL 25 MG TABLET (FP) PO SCH (21:05)
[2019-09-23] MEDS: oxyCODONE HCL 5 MG TABLET PO PRN (21:07)
[2019-09-23] MEDS: ACETAMINOPHEN 325 MG TABLET (FP) PO PRN (21:08)
[2019-09-23] MEDS: ATORVASTATIN CA 10 MG TABLET (FP) PO SCH (21:08)
[2019-09-24 07:33] LABS: BASO % 0.3 % (0-2.0); EOS % 3.3 % (0-4.5); HEMATOCRIT 26.2 % (35.4-49); HEMOGLOBIN 8.7 GM/dl (11.7-16.9); LYMPH % 11.9 % (8-40); MCH 29.1 pg (25.7-33.7); MCHC 33.3 g/dl (32.0-35.9); MEAN CELL VOLUME 87.5 fl (80-96); MEAN PLT VOLUME 8.1 fl (7.5-11.1); MONO % 10.1 % (3.8-10.2); NEUT % 74.4 % (42.8-82.8); PLATELET COUNT 163 K/MM3 (134-434); RBC 2.99 M/mm3 (4.00-5.60); RDW 13.8 % (11.9-15.9); WHITE BLOOD COUNT 7.4 K/mm3 (4.0-10.8)
[2019-09-24 07:55] LABS: ALBUMIN 2.7 g/dl (3.4-5.0); BILIRUBIN,TOTAL 1.6 mg/dl (0.2-1); CALCIUM 8.1 mg/dl (8.5-10); CREATININE 0.9 mg/dl (0.55-1.3); POTASSIUM 3.7 mmol/L (3.5-5.1)
[2019-09-24 08:39] LABS: INR 1.93 (0.82-1.09); PROTHROMBIN TIME (PATIENT) 21.3 SEC (10.2-13.0)
[2019-09-24] MEDS: LISINOPRIL 10 MG TABLET (FP) PO SCH (09:58)
[2019-09-24] MEDS: HYDROCHLOROTHIAZIDE 25 MG TABLET (FP) PO SCH (09:58)
[2019-09-24] MEDS: CARVEDILOL 25 MG TABLET (FP) PO SCH ×2 (09:58→21:16)
--- NOTE | 2019-09-24 15:16 | PN ---
Documentation entered by Tere Skinner SCRIBE, acting as scribe for Antoinette Shukla NP. Physical Exam: SUBJECTIVE: Patient seen and examined at bedside. Pt reports swelling in his left thigh. OBJECTIVE: Vital Signs Period Temp Pulse Resp BP Sys/Toussaint Pulse Ox Last 24 Hr 97.3 F-98.3 F 83-109 16-18 73-155/48-85 97-100 GENERAL: Awake, alert, and fully oriented, in no acute distress. HEAD: Normal with no signs of trauma. EYES: Pupils equal, round and reactive to light, extraocular movements intact, sclera anicteric, conjunctiva clear. LUNGS: Breath sounds equal, clear to auscultation bilaterally. No wheezes, and no crackles. No accessory muscle use. HEART: Regular rate and rhythm, normal S1 and S2 ABDOMEN: Soft, nontender, not distended MUSCULOSKELETAL: Normal range of motion at all joints. No bony deformities or tenderness. No CVA tenderness. UPPER EXTREMITIES: 2+ pulses, warm, well-perfused. No cyanosis. No clubbing. No peripheral edema. LOWER EXTREMITIES: 2+ pulses, warm, well-perfused. No calf tenderness. No peripheral edema; left buttock is swollen and firm, ecchymosis left lateral thigh Laboratory Results - last 24 hr 09/22/19 09/23/19 09/23/19 06:55 10:43 10:43 WBC 8.6 RBC 2.75 L Hgb 7.9 L Hct 23.6 L MCV 85.9 MCH 28.8 MCHC 33.5 RDW 14.3 Plt Count 204 MPV 7.9 Absolute Neuts (auto) 6.6 Neutrophils % 77.0 Lymphocytes % 11.6 D Monocytes % 9.1 Eosinophils % 2.0 D Basophils % 0.3 PT with INR INR Sodium 136 Potassium 3.7 Chloride 104 Carbon Dioxide 27 Anion Gap 5 L BUN 29.0 H Creatinine 1.1 Est GFR (CKD-EPI)AfAm 79.52 Est GFR (CKD-EPI)NonAf 68.61 Random Glucose 140 H Calcium 8.3 L Magnesium 2.0 Total Bilirubin 0.8 AST 14 L ALT 12 L Alkaline Phosphatase 39 L D Total Protein 5.0 L Albumin 2.7 L Blood Type A POSITIVE Antibody Screen Negative Crossmatch See Detail 09/23/19 09/24/19 09/24/19 10:43 06:57 06:57 WBC 7.4 RBC 2.99 L Hgb 8.7 L Hct 26.2 L MCV 87.5 MCH 29.1 MCHC 33.3 RDW 13.8 Plt Count 163 D MPV 8.1 Absolute Neuts (auto) 5.6 Neutrophils % 74.4 Lymphocytes % 11.9 Monocytes % 10.1 Eosinophils % 3.3 Basophils % 0.3 PT with INR 16.4 H INR 1.48 H Sodium 138 Potassium 3.7 Chloride 108 H Carbon Dioxide 28 Anion Gap 2 L BUN 21.0 H Creatinine 0.9 Est GFR (CKD-EPI)AfAm 101.36 Est GFR (CKD-EPI)NonAf 87.45 Random Glucose 102 Calcium 8.1 L Magnesium 2.0 Total Bilirubin 1.6 H AST 13 L ALT 13 Alkaline Phosphatase 40 L Total Protein 5.0 L Albumin 2.7 L Blood Type Antibody Screen Crossmatch Active Medications Generic Name Dose Route Start Last Admin Trade Name Freq PRN Reason Stop Dose Admin Acetaminophen 650 mg 09/21/19 23:59 09/23/19 21:08 Tylenol - PO 650 mg Q6H PRN Administration PAIN LEVEL 1-5 Atorvastatin Calcium 10 mg 09/22/19 22:00 09/23/19 21:08 Lipitor - PO 10 mg HS [facility] Administration Carvedilol 25 mg 09/22/19 10:00 09/23/19 21:05 Coreg - PO Not Given BID [facility] Hydrochlorothiazide 25 mg 09/22/19 10:00 09/22/19 10:03 Hctz - PO 25 mg DAILY [facility] Administration Lisinopril 20 mg 09/22/19 10:00 09/22/19 10:03 Prinivil PO 20 mg DAILY [facility] Administration Oxycodone HCl 5 mg 09/21/19 23:59 09/23/19 21:07 Roxicodone - PO 5 mg Q6H PRN Administration PAIN LEVEL 6-10 Warfarin Sodium 7.5 mg 09/23/19 18:00 09/23/19 18:26 Coumadin - PO 7.5 mg DAILY@1800 [facility] Administration ASSESSMENT/PLAN: 68 year-old male with a PMH significant for atrial fibrillation on coumadin with a supratherapeutic INR s/p two falls. Admitted for left buttock hematoma. Near syncope yesterday during PT. Left buttock hematoma s/p fall while on anticoagulant --09/21 CT pelvis: asymmetric enlargement of left buttock muscles with large hematoma; no gross organized drainable collection or hematoma --seen and evaluated by surgery: no surgical intervention at this time --warm compresses q2h --pain management Elevated INR --INR 6.2 on admission, given one dose Vit K in ED, now 1.93 --daily INR checks Anemia secondary to bleeding in setting of fall on anticoagulation --near syncopal episode yesterday during PT, Hgb dropped to 7.9 --transfused 2U PRBC, Hgb 8.7 today, less than robust response --stop all anticoagulation --IV fluids --monitor h/h --hold lisinopril Atrial fibrillation --hold all anticoagulation due drop in Hgb --continue carvedilol for rate control DVT prophylaxis: SCDs, oob, ambulation Physical therapy Dispo: continues to require inpatient care. Full code. Visit type - Emergency Visit Emergency Visit: Yes ED Registration Date: 09/21/19 Care time: The patient presented to the Emergency Department on the above date and was hospitalized for further evaluation of their emergent condition. - New Patient This patient is new to me today: No - Critical Care Critical Care patient: No Antoinette Shukla NP: This documentation has been prepared by the Brody cho Maria, SCRIBE, under my direction and personally reviewed by me in its entirety. I confirm that the documentation accurately reflects all work, treatment, procedures, and medical decision making performed by me.
[2019-09-24 18:24] LABS: HEMATOCRIT 27.5 % (35.4-49); HEMOGLOBIN 9.3 GM/dl (11.7-16.9); MCH 29.5 pg (25.7-33.7); MCHC 33.9 g/dl (32.0-35.9); MEAN CELL VOLUME 87.1 fl (80-96); MEAN PLT VOLUME 8.4 fl (7.5-11.1); PLATELET COUNT 222 K/MM3 (134-434); RBC 3.16 M/mm3 (4.00-5.60); RDW 14.1 % (11.9-15.9); WHITE BLOOD COUNT 10.4 K/mm3 (4.0-10.8)
[2019-09-24] MEDS: ATORVASTATIN CA 10 MG TABLET (FP) PO SCH (21:16)
[2019-09-25] MEDS: SODIUM CHLORIDE 1,000 ML IV SCH ×2 (08:30→16:55)
[2019-09-25] MEDS: HYDROCHLOROTHIAZIDE 25 MG TABLET (FP) PO SCH (08:30)
[2019-09-25] MEDS: LISINOPRIL 10 MG TABLET (FP) PO SCH (08:30)
[2019-09-25] MEDS: CARVEDILOL 25 MG TABLET (FP) PO SCH ×3 (08:30→21:43)
[2019-09-25 12:30] LABS: HEMATOCRIT 27.6 % (35.4-49); MCH 28.7 pg (25.7-33.7); MCHC 32.5 g/dl (32.0-35.9); MEAN CELL VOLUME 88.1 fl (80-96); MEAN PLT VOLUME 7.5 fl (7.5-11.1); PLATELET COUNT 205 K/MM3 (134-434); RBC 3.13 M/mm3 (4.00-5.60); RDW 14.7 % (11.9-15.9); WHITE BLOOD COUNT 7.7 K/mm3 (4.0-10.8)
--- NOTE | 2019-09-25 14:39 | PN ---
Physical Exam: SUBJECTIVE: Patient seen and examined OBJECTIVE: Vital Signs Period Temp Pulse Resp BP Sys/Toussaint Pulse Ox Last 24 Hr 97.9 F-98.9 F 81-95 17-18 123-144/60-76 98-100 GENERAL: Awake, alert, and fully oriented, in no acute distress. HEAD: Normal with no signs of trauma. EYES: Pupils equal, round and reactive to light, extraocular movements intact, sclera anicteric, conjunctiva clear. LUNGS: Breath sounds equal, clear to auscultation bilaterally. No wheezes, and no crackles. No accessory muscle use. HEART: Regular rate and rhythm, normal S1 and S2 ABDOMEN: Soft, nontender, not distended MUSCULOSKELETAL: Normal range of motion at all joints. No bony deformities or tenderness. No CVA tenderness. UPPER EXTREMITIES: 2+ pulses, warm, well-perfused. No cyanosis. No clubbing. No peripheral edema. LOWER EXTREMITIES: 2+ pulses, warm, well-perfused. No calf tenderness. Left thigh with significant swelling; left buttock remains firm, tense; ecchymosis now extends down leg Laboratory Results - last 24 hr 09/24/19 09/25/19 17:53 12:25 WBC 10.4 7.7 RBC 3.16 L 3.13 L Hgb 9.3 L 9.0 L Hct 27.5 L 27.6 L MCV 87.1 88.1 MCH 29.5 28.7 MCHC 33.9 32.5 RDW 14.1 14.7 Plt Count 222 D 205 MPV 8.4 7.5 D Active Medications Generic Name Dose Route Start Last Admin Trade Name Freq PRN Reason Stop Dose Admin Acetaminophen 650 mg 09/21/19 23:59 09/23/19 21:08 Tylenol - PO 650 mg Q6H PRN Administration PAIN LEVEL 1-5 Atorvastatin Calcium 10 mg 09/22/19 22:00 09/24/19 21:16 Lipitor - PO 10 mg HS [facility] Administration Carvedilol 25 mg 09/22/19 10:09/25/19 09:09 Coreg - PO 25 mg BID [facility] Administration Sodium Chloride 1,000 mls @ 100 mls/hr 09/24/19 15:15 09/25/19 08:30 Normal Saline - IV Not Given ASDIR [facility]IAN Lisinopril 20 mg 09/22/19 10:00 09/25/19 08:30 Prinivil PO Not Given DAILY [facility] Oxycodone HCl 5 mg 09/21/19 23:59 09/23/19 21:07 Roxicodone - PO 5 mg Q6H PRN Administration PAIN LEVEL 6-10 ASSESSMENT/PLAN: 68 year-old male with a PMH significant for atrial fibrillation on coumadin with a supratherapeutic INR s/p two falls. Admitted for left buttock hematoma. Near syncope yesterday during PT. Left buttock hematoma s/p fall while on anticoagulant --concern for significantly increased swelling in left upper thigh; repeat CT ([facility] read) shows multiple hyperdensities in left gluteal muscles compatible with muscle hematomas,diffuse LLE swelling and edema and subq fluid, but no definite organized collection --US LLE to r/o DVT pending dictation --pain management Elevated INR --INR 6.2 on admission, given one dose Vit K in ED, now 1.93 --daily INR checks Anemia secondary to bleeding in setting of fall on anticoagulation --near syncopal episode on 09/23 in setting of Hgb 7.9 --transfused 2U PRBC on 09/23-, Hgb today 9.0 --continue to hold all anticoagulation --IV fluids --monitor h/h --hold lisinopril, restart as BP allows Atrial fibrillation --hold all anticoagulation until h/h stabilizes --continue carvedilol for rate control DVT prophylaxis: SCDs, oob, ambulation Physical therapy Dispo: continues to require inpatient care. Full code. Visit type - Emergency Visit Emergency Visit: Yes ED Registration Date: 09/21/19 Care time: The patient presented to the Emergency Department on the above date and was hospitalized for further evaluation of their emergent condition. - New Patient This patient is new to me today: No - Critical Care Critical Care patient: No
[2019-09-25] MEDS: ATORVASTATIN CA 10 MG TABLET (FP) PO SCH (21:43)
[2019-09-26] MEDS: CARVEDILOL 25 MG TABLET (FP) PO SCH ×2 (09:00→21:37)
--- NOTE | 2019-09-26 09:34 | PN ---
Physical Exam: SUBJECTIVE: Patient seen and examined OBJECTIVE: Vital Signs Period Temp Pulse Resp BP Sys/Toussaint Pulse Ox Last 24 Hr 97.8 F-98.9 F 81-93 16-17 123-140/62-86 98-100 GENERAL: Awake, alert, and fully oriented, in no acute distress. LUNGS: Breath sounds equal, clear to auscultation bilaterally. No wheezes, and no crackles. No accessory muscle use. HEART: Regular rate and rhythm, normal S1 and S2 ABDOMEN: Soft, nontender, not distended UPPER EXTREMITIES: 2+ pulses, warm, well-perfused. No cyanosis. No clubbing. No peripheral edema. LOWER EXTREMITIES: 2+ pulses, warm, well-perfused. No calf tenderness. Left thigh with significant swelling; left buttock remains firm, tense; ecchymosis now extends down leg Laboratory Results - last 24 hr 09/25/19 12:25 WBC 7.7 RBC 3.13 L Hgb 9.0 L Hct 27.6 L MCV 88.1 MCH 28.7 MCHC 32.5 RDW 14.7 Plt Count 205 MPV 7.5 D Active Medications Generic Name Dose Route Start Last Admin Trade Name Freq PRN Reason Stop Dose Admin Acetaminophen 650 mg 09/21/19 23:59 09/23/19 21:08 Tylenol - PO 650 mg Q6H PRN Administration PAIN LEVEL 1-5 Atorvastatin Calcium 10 mg 09/22/19 22:00 09/25/19 21:43 Lipitor - PO 10 mg HS [facility] Administration Carvedilol 25 mg 09/22/19 10:00 09/26/19 09:00 Coreg - PO 25 mg BID [facility] Administration Docusate Sodium 300 mg 09/26/19 22:00 Colace - PO HS [facility]ARIAN Sodium Chloride 1,000 mls @ 100 mls/hr 09/24/19 15:15 09/25/19 16:55 Normal Saline - IV 100 mls/hr ASDIR DARIAN Administration Lisinopril 20 mg 09/22/19 10:00 09/25/19 08:30 Prinivil PO Not Given DAILY [facility] Polyethylene Glycol 17 gm 09/26/19 10:00 Miralax (For Daily Use) - PO BID [facility] ASSESSMENT/PLAN: 68 year-old male with a PMH significant for atrial fibrillation on coumadin with a supratherapeutic INR s/p two falls. Admitted for left buttock hematoma. Near syncope yesterday during PT. Left buttock hematoma s/p fall while on anticoagulant --buttock remains tense, deepening ecchymosis extending down entire leg --09/25 CT: intramuscular hematoma; soft tissue edema from knee joint to ankle joint, no discrete collection or abscess --09/25 US LLE: negative for DVT Elevated INR --INR 6.2 on admission, given one dose Vit K in ED, now 1.42 --start lovenox 1mg/kg q12h Anemia secondary to bleeding in setting of fall on anticoagulation --near syncopal episode on 09/23 in setting of Hgb 7.9 --transfused 2U PRBC on 09/23-, Hgb today 9.0 --monitor h/h --hold lisinopril, restart as BP allows Atrial fibrillation --continue carvedilol for rate control DVT prophylaxis: SCDs, oob, ambulation Physical therapy Dispo: continues to require inpatient care. Full code. Visit type - Emergency Visit Emergency Visit: Yes ED Registration Date: 09/21/19 Care time: The patient presented to the Emergency Department on the above date and was hospitalized for further evaluation of their emergent condition. - New Patient This patient is new to me today: No - Critical Care Critical Care patient: No
[2019-09-26 10:39] LABS: CALCIUM 8.3 mg/dl (8.5-10); CREATININE 0.8 mg/dl (0.55-1.3); MAGNESIUM 2.1 mg/dL (1.8-2.4); POTASSIUM 3.6 mmol/L (3.5-5.1)
[2019-09-26 10:46] LABS: BILIRUBIN,DIRECT 0.4 mg/dL (0.0-0.2); BILIRUBIN,TOTAL 1.5 mg/dl (0.2-1); TOT PROT 5.8 g/dl (6.4-8.2)
[2019-09-26 10:51] LABS: INR 1.42 (0.82-1.09); PROTHROMBIN TIME (PATIENT) 15.8 SEC (10.2-13.0)
[2019-09-26] MEDS: POLYETHYLENE GLYCOL 3350 119 GM BTL PO SCH ×2 (11:00→21:37)
[2019-09-26] MEDS ORDERED: INSULIN (NOVOLOG) ASPART 100 UNITS/ML 10ML VIAL ONE (11:17)
[2019-09-26 12:09] LABS: BASO % 0.4 % (0-2.0); EOS % 2.2 % (0-4.5); HEMATOCRIT 26.8 % (35.4-49); HEMOGLOBIN 8.9 GM/dL (11.7-16.9); LYMPH % 8.9 % (8-40); MCHC 33.1 g/dl (32.0-35.9); MEAN CELL VOLUME 87.7 fl (80-96); MEAN PLT VOLUME 8.1 fl (7.5-11.1); MONO % 7.1 % (3.8-10.2); NEUT % 81.4 % (42.8-82.8); PLATELET COUNT 178 K/MM3 (134-434); RBC 3.06 M/mm3 (4.00-5.60); RDW 15.8 % (11.9-15.9); WHITE BLOOD COUNT 6.4 K/mm3 (4.0-10.0)
[2019-09-26] MEDS ORDERED: ENOXAPARIN NA (PORCINE) 120 MG/0.8 ML DISP.SYRIN SQ SCH (12:30)
[2019-09-26] MEDS: ENOXAPARIN NA (PORCINE) 60 MG/0.6 ML DISP.SYRIN SQ SCH (14:24)
[2019-09-26] MEDS: SODIUM CHLORIDE 1,000 ML IV SCH (15:15)
[2019-09-26] MEDS: DOCUSATE SODIUM 100 MG CAPSULE (FP) PO SCH (21:37)
[2019-09-26] MEDS: ATORVASTATIN CA 10 MG TABLET (FP) PO SCH (21:37)
[2019-09-27] MEDS: ENOXAPARIN NA (PORCINE) 60 MG/0.6 ML DISP.SYRIN SQ SCH ×2 (02:09→15:13)
[2019-09-27 07:52] LABS: HEMATOCRIT 25.4 % (35.4-49); HEMOGLOBIN 8.5 GM/dl (11.7-16.9); MCH 29.8 pg (25.7-33.7); MCHC 33.5 g/dl (32.0-35.9); MEAN CELL VOLUME 89.1 fl (80-96); PLATELET COUNT 188 K/MM3 (134-434); RBC 2.85 M/mm3 (4.00-5.60); RDW 14.9 % (11.9-15.9); WHITE BLOOD COUNT 7.1 K/mm3 (4.0-10.8)
[2019-09-27] MEDS: CARVEDILOL 25 MG TABLET (FP) PO SCH ×2 (09:20→21:08)
[2019-09-27] MEDS: POLYETHYLENE GLYCOL 3350 119 GM BTL PO SCH ×2 (09:21→21:08)
--- NOTE | 2019-09-27 16:16 | CONSULT ---
Consult Consult Specialty:: heme Referred by:: rocco clarke np Reason for Consultation:: bleeding - History of Present Illness Chief Complaint: 68 yom adm in setting of fall x2 w hip pain History of Present Illness: pt w h/o AF on coumadin adm s/p fall w L hip pain and found to have supratx INR eval per surg and not felt to have any fx or require intervention. given 2u pcs for symptomatic anemia, hb 7.9 developed marked ecchymoses/swelling of L buttocks,leg. he currently notes that pain is improved no known h/o any bleeding d/o of FH of such. no prior bleeding noted - Alcohol/Substance Use Hx Alcohol Use: No - Smoking History Smoking history: Former smoker Have you smoked in the past 12 months: Yes Aproximately how many cigarettes per day: 0 If you are a former smoker, when did you quit?: [employer] Home Medications - Allergies Allergies/Adverse Reactions: Allergies Allergy/AdvReac Type Severity Reaction Status Date / Time Penicillins Allergy Intermediate Swelling Verified 09/21/19 16:54 - Home Medications Home Medications: Ambulatory Orders Lisinopril 20 mg PO DAILY 09/15/15 Atorvastatin Ca [Lipitor] 10 mg PO DAILY 05/10/18 Carvedilol [Coreg -] 25 mg PO BID 05/10/18 Cholecalciferol (Vitamin D3) [Vitamin D3] 4,000 unit PO DAILY 05/10/18 Hydrochlorothiazide [Hctz -] 25 mg PO DAILY 05/10/18 Warfarin Na [Coumadin -] 7.5 mg PO SUTUWETHSA 05/10/18 Warfarin Na [Coumadin -] 10 mg PO MOFR 05/10/18 Physical Exam Vital Signs: Vital Signs Temperature 98.1 F 09/27/19 14:46 Pulse Rate 74 09/27/19 14:47 Respiratory Rate 18 09/27/19 14:46 Blood Pressure 154/76 09/27/19 14:46 O2 Sat by Pulse Oximetry (%) 98 09/27/19 14:47 Constitutional: Yes: Well Nourished, Calm Eyes: Yes: WNL, Conjunctiva Clear HENT: Yes: WNL Neck: Yes: WNL, Supple Cardiovascular: Yes: Pulse Irregular, S1, S2 Respiratory: Yes: CTA Bilaterally Gastrointestinal: Yes: Normal Bowel Sounds, Soft Edema: LLE: 2+ Integumentary: Yes: Other (LLE, buttocks linear ecchymosis/swelling) Neurological: Yes: WNL Labs: CBC, BMP 09/27/19 06:50 09/26/19 10:00 Assessment/Plan c/w ST/muscular bruising post-fall, on coumadin per cardiology, pt requires contd a/c and is now on lmwh. the inr has near- norrmalized post-vit K dose and holding coumadin anticipate eventual slowing down of bleeding and hemostasis achieved will need to support w transfusion in mean time (threshold hb 9 is reasonable for pt w near-syncope w hb 7.9)
--- NOTE | 2019-09-27 19:31 | PN ---
Physical Exam: SUBJECTIVE: Patient seen and examined OBJECTIVE: Vital Signs Period Temp Pulse Resp BP Sys/Toussaint Pulse Ox Last 24 Hr 97.7 F-98.5 F 51-95 18-20 134-154/66-86 98-100 GENERAL: The patient is awake, alert, and fully oriented, in no acute distress. HEAD: Normal with no signs of trauma. EYES: PERRL, extraocular movements intact, sclera anicteric, conjunctiva clear. No ptosis. ENT: Ears normal, nares patent, oropharynx clear without exudates, moist mucous membranes. NECK: Trachea midline, full range of motion, supple. LUNGS: Breath sounds equal, clear to auscultation bilaterally, no wheezes, no crackles, no accessory muscle use. HEART: Regular rate and rhythm, S1, S2 without murmur, rub or gallop. ABDOMEN: Soft, nontender, nondistended, normoactive bowel sounds, no guarding, no rebound, no hepatosplenomegaly, no masses. EXTREMITIES: 2+ pulses, warm, well-perfused, no edema. NEUROLOGICAL: Cranial nerves II through XII grossly intact. Normal speech, gait not observed. PSYCH: Normal mood, normal affect. SKIN: Warm, dry, normal turgor, no rashes or lesions noted Laboratory Results - last 24 hr 09/22/19 09/27/19 09/27/19 06:55 06:50 13:30 WBC 7.1 RBC 2.85 L Hgb 8.5 L Hct 25.4 L MCV 89.1 MCH 29.8 MCHC 33.5 RDW 14.9 Plt Count 188 MPV 8.0 Blood Type A POSITIVE A POSITIVE Antibody Screen Negative Negative Crossmatch See Detail See Detail Active Medications Generic Name Dose Route Start Last Admin Trade Name Freq PRN Reason Stop Dose Admin Acetaminophen 650 mg 09/21/19 23:59 09/23/19 21:08 Tylenol - PO 650 mg Q6H PRN Administration PAIN LEVEL 1-5 Atorvastatin Calcium 10 mg 09/22/19 22:00 09/26/19 21:37 Lipitor - PO 10 mg HS [facility] Administration Carvedilol 25 mg 09/22/19 10:00 09/27/19 09:20 Coreg - PO 25 mg BID [facility] Administration Docusate Sodium 300 mg 09/26/19 22:00 09/26/19 21:37 Colace - PO 300 mg HS D[facility]IAN Administration Enoxaparin Sodium 120 mg 09/26/19 14:10 09/27/19 15:13 Lovenox - SQ 120 mg Q12H [facility] Administration Lisinopril 20 mg 09/22/19 10:00 09/25/19 08:30 Prinivil PO Not Given DAILY [facility] Polyethylene Glycol 17 gm 09/26/19 10:00 09/27/19 09:21 Miralax (For Daily Use) - PO 17 gm BID [facility] Administration ASSESSMENT/PLAN: 68 year-old male with a PMH significant for atrial fibrillation on coumadin with a supratherapeutic INR s/p two falls. Admitted for left buttock hematoma. Left buttock hematoma s/p fall while on anticoagulant --buttock remains tense, ecchymosis extending down entire leg --09/25 CT: intramuscular hematoma; soft tissue edema from knee joint to ankle joint, no discrete collection or abscess --09/25 US LLE: negative for DVT Elevated INR --INR 6.2 on admission, given one dose Vit K in ED, now 1.42 --continue lovenox 1mg/kg q12h Anemia secondary to bleeding in setting of fall on anticoagulation --near syncopal episode on 09/23 in setting of Hgb 7.9 --transfused 2U PRBC on 09/23-, Hgb today dropped 9.0-->8.5 --seen and evaluated by hematology, given symptoms, transfuse threshold is <9 --transfused 3U PRBC today --continue to hold lisinopril Atrial fibrillation --continue carvedilol for rate control DVT prophylaxis: SCDs, oob, ambulation Physical therapy Dispo: continues to require inpatient care. Full code. Visit type - Emergency Visit Emergency Visit: Yes ED Registration Date: 09/21/19 Care time: The patient presented to the Emergency Department on the above date and was hospitalized for further evaluation of their emergent condition. - New Patient This patient is new to me today: No - Critical Care Critical Care patient: No
[2019-09-27] MEDS: DOCUSATE SODIUM 100 MG CAPSULE (FP) PO SCH (21:08)
[2019-09-27] MEDS: ATORVASTATIN CA 10 MG TABLET (FP) PO SCH (21:08)
[2019-09-27 22:04] LABS: HEMATOCRIT 28.6 % (35.4-49); HEMOGLOBIN 9.4 GM/dl (11.7-16.9); MCH 29.4 pg (25.7-33.7); MEAN PLT VOLUME 7.7 fl (7.5-11.1); PLATELET COUNT 212 K/MM3 (134-434); RBC 3.21 M/mm3 (4.00-5.60); RDW 15.6 % (11.9-15.9); WHITE BLOOD COUNT 7.2 K/mm3 (4.0-10.8)
[2019-09-28] MEDS: ENOXAPARIN NA (PORCINE) 60 MG/0.6 ML DISP.SYRIN SQ SCH (01:32)
--- NOTE | 2019-09-28 07:17 | PN ---
Progress Note (short form) - Note Progress Note: Chief Complaint: Events noted, notes reviewed, reports persistent left leg discomfort, denies any chest pain or dyspnea, denies any palpitations History of Present Illness: Seen and examined on telemetry. Full consult dictated Medications: Current Medications Acetaminophen (Tylenol -) 650 mg PO Q6H PRN PRN Reason: PAIN LEVEL 1-5 Last Admin: 09/23/19 21:08 Dose: 650 mg Atorvastatin Calcium (Lipitor -) [address] [facility] Last Admin: 09/27/19 21:08 Dose: 10 mg Carvedilol (Coreg -) 25 mg PO BID [facility] Last Admin: 09/27/19 21:08 Dose: 25 mg Docusate Sodium (Colace -) [address] [facility] Last Admin: 09/27/19 21:08 Dose: 300 mg Enoxaparin Sodium (Lovenox -) 120 mg SQ Q12H [facility] Last Admin: 09/28/19 01:32 Dose: 120 mg Lisinopril (Prinivil) 20 mg PO DAILY [facility] Last Admin: 09/25/19 08:30 Dose: Not Given Polyethylene Glycol (Miralax (For Daily Use) -) 17 gm PO BID [facility] Last Admin: 09/27/19 21:08 Dose: 17 gm Review of Systems - Review of Systems Constitutional: denies: Chills, Fever Cardiovascular: As noted above Respiratory: denies: Cough or Sputum Production Gastrointestinal: denies: Nausea, Vomiting, Diarrhea, Constipation or Abdominal Pain Neurological: denies: Headaches Vital Signs: Last Vital Signs Temp Pulse Resp BP Pulse Ox 97.9 F 96 H 18 146/83 95 09/28/19 06:00 09/28/19 06:00 09/28/19 06:00 09/28/19 06:00 09/28/19 06:12 Intake & Output 09/25/19 09/26/19 09/27/19 09/28/19 23:59 23:59 23:59 23:59 Intake Total 1450 2350 1750 Output Total 2130 3105 250 700 Balance -680 -755 1500 -700 Neck: Supple Negative JVD No Bruit Respiratory: Clear to A&P bilaterally Cardiovascular: S1 S2 Irregularly Irregular Gastrointestinal: Soft Benign Normal Bowel Sounds Ext: Edema Ecchymosis Hematoma LLE Labs: CBC, BMP 09/27/19 21:45 09/26/19 10:00 Hepatic Panel Total Bilirubin 1.5 mg/dl (0.2-1) H 09/26/19 10:00 Direct Bilirubin 0.4 mg/dL (0.0-0.2) H 09/26/19 10:00 AST 15 U/L (15-37) 09/26/19 10:00 ALT 14 U/L (13-61) 09/26/19 10:00 Alkaline Phosphatase 54 U/L (45-117) D 09/26/19 10:00 Albumin 3.0 g/dl (3.4-5.0) L 09/26/19 10:00 INR, PTT INR 1.42 (0.82-1.09) H 09/26/19 10:00 Assessment/Plan ASSESSMENT: 1. Accidental fall complicated by LLE hematoma no evidence of compartment syndrome post transfusion 2. CAD angina pectoris 3. Diastolic LV dysfunction with clinical class 0 NYHA classification LV failure 4. Persistent atrial fibrillation [id number] score of 2 on A/C with Coumadin, supra-therapeutic INR- resolved 5. HTN 6. Hypercholesterolemia 7. Anemia related to the above noted bleed PLAN: 1. Continue Coreg 2. Continue Lisinopril 3. Continue Lipitor 4. Since no intervention is planned recommend resumption of A/C with DOAC's- Eliquis and D/C Lovenox, avoid Coumadin in view of unstable INR 5. Monitor Hg level and transfuse as needed 6. Followup in the office post discharge with Dr. Shani Almaguer [phone] Yeni Arriaza M.D.
[2019-09-28] MEDS: POLYETHYLENE GLYCOL 3350 119 GM BTL PO SCH ×2 (09:34→09:41)
[2019-09-28] MEDS: CARVEDILOL 25 MG TABLET (FP) PO SCH (09:34)
[2019-09-28] MEDS ORDERED: APIXABAN 5 MG TABLET PO SCH ×2 (10:00→13:00)
[2019-09-28 10:24] LABS: HEMATOCRIT 28.1 % (35.4-49); HEMOGLOBIN 9.2 GM/dl (11.7-16.9); MCH 29.2 pg (25.7-33.7); MCHC 32.9 g/dl (32.0-35.9); MEAN CELL VOLUME 88.7 fl (80-96); MEAN PLT VOLUME 7.7 fl (7.5-11.1); PLATELET COUNT 211 K/MM3 (134-434); RBC 3.16 M/mm3 (4.00-5.60); RDW 15.5 % (11.9-15.9)
--- NOTE | 2019-09-28 10:31 | DS ---
Physical Exam: SUBJECTIVE: Patient seen and examined OBJECTIVE: Vital Signs Period Temp Pulse Resp BP Sys/Toussaint Pulse Ox Last 24 Hr 97.9 F-98.8 F 74-96 17-18 139-155/75-87 95-100 PHYSICAL EXAM GENERAL: Awake, alert, and fully oriented, in no acute distress. LUNGS: Breath sounds equal, clear to auscultation bilaterally. No wheezes, and no crackles. No accessory muscle use. HEART: Regular rate and rhythm, normal S1 and S2 ABDOMEN: Soft, nontender, not distended UPPER EXTREMITIES: 2+ pulses, warm, well-perfused. No cyanosis. No clubbing. No peripheral edema. LOWER EXTREMITIES: 2+ pulses, warm, well-perfused. No calf tenderness. Left thigh with significant swelling; left buttock remains firm, tense; ecchymosis now extends down leg LABS Laboratory Results - last 24 hr 09/27/19 09/27/19 09/28/19 13:30 21:45 09:45 WBC 7.2 RBC 3.21 L Hgb 9.4 L Hct 28.6 L MCV 89.0 MCH 29.4 MCHC 33.0 RDW 15.6 Plt Count 212 MPV 7.7 Stool Occult Blood Negative Blood Type A POSITIVE Antibody Screen Negative Crossmatch See Detail 09/28/19 10:09 WBC 8.0 RBC 3.16 L Hgb 9.2 L Hct 28.1 L MCV 88.7 MCH 29.2 MCHC 32.9 RDW 15.5 Plt Count 211 MPV 7.7 Stool Occult Blood Blood Type Antibody Screen Crossmatch HOSPITAL COURSE: Date of Admission:09/21/19 Date of Discharge: 09/28/19 Pre hospital course 68 year-old male with a PMH significant for atrial fibrillation on coumadin who presented to the [facility] for evaluation following two falls. The first fall was on 09/19, he slipped on the ice and fell on his left buttock/hip. He fell a second time on 09/21. He fell forward landing on his hands. On neither occasion did he hit his head and there was no LOC. Patient describes the pain in his left hip as sharp and severe with ambulation, 8/10. It does not radiate. He has experienced lightheadedness with standing. ER course (1) WBC 13.8k (2) Hgb 11.1 (baseline 15.8) (3) INR 6.2 Subsequent hospital course 68 year-old male with a PMH significant for atrial fibrillation on coumadin with a supratherapeutic INR s/p two falls. Admitted for left buttock hematoma. Left buttock hematoma s/p fall while on anticoagulant --buttock remains tense, ecchymosis extending down entire leg; ambulation improved, able to walk 260 feet with PT but with fatigue --09/25 CT: intramuscular hematoma; soft tissue edema from knee joint to ankle joint, no discrete collection or abscess --09/25 US LLE: negative for DVT Elevated INR --INR 6.2 on admission, given one dose Vit K in ED, now 1.42 --continue lovenox 1mg/kg q12h Anemia secondary to bleeding in setting of fall on anticoagulation --near syncopal episode on 09/23 in setting of Hgb 7.9 --transfused 2U PRBC on 09/23-, Hgb dropped again, seen and evaluated by hematology, given symptoms, transfused a third unit to maintain Hgb 9+ --Hgb 9.2 at time of discharge --very close outpatient followup Atrial fibrillation --continue carvedilol for rate control --seen and evaluated by cardiology, patient agreed to transition to Eliquis, discharged on same Minutes to complete discharge: 35 Discharge Summary Problems reviewed: Yes Reason For Visit: WARFARIN INDUCED COAGULOPATHY, TRAUMATIC HEMATUMA Current Active Problems Traumatic hematoma of buttock (Acute) Warfarin-induced coagulopathy (Acute) Condition: Improved - Instructions Diet, Activity, Other Instructions: A prescription has been sent to your pharmacy for Eliquis which is a blood- thinning medication. Take this medication as directed. Take your first dose late tonight. Referrals: Larry Gatica MD [Primary Care Provider] - 09/30/19 10:00 am (Please make an appointment to see Dr. Gatica on to have your hemoglobin checked. ) Disposition: HOME - Home Medications Comprehensive Discharge Medication List: Ambulatory Orders Lisinopril 20 mg PO DAILY 09/15/15 Atorvastatin Ca [Lipitor] 10 mg PO DAILY 05/10/18 Carvedilol [Coreg -] 25 mg PO BID 05/10/18 Cholecalciferol (Vitamin D3) [Vitamin D3] 4,000 unit PO DAILY 05/10/18 Hydrochlorothiazide [Hctz -] 25 mg PO DAILY 05/10/18 Warfarin Na [Coumadin -] 7.5 mg PO SUTUWETHSA 05/10/18 Warfarin Na [Coumadin -] 10 mg PO MOFR 05/10/18 This patient is new to me today: No Emergency Visit: Yes ED Registration Date: 09/21/19 Care time: The patient presented to the Emergency Department on the above date and was hospitalized for further evaluation of their emergent condition. Critical Care patient: No - Discharge Referral Referred to [facility] Med P.C.: No
[2019-09-28] MEDS ORDERED: ENOXAPARIN NA (PORCINE) 120 MG/0.8 ML DISP.SYRIN SQ ONE (13:00)
--- NOTE | 2019-09-28 13:25 | CONS ---
DATE OF CONSULTATION: 09/28/2019 CONSULTATION REQUESTED BY: Hospitalist service CHIEF COMPLAINT: Fall, left leg hematoma, cardiovascular evaluation. HISTORY: Patient known to our service, established office patient. A 68-year-old male with known history of persistent atrial fibrillation on chronic anticoagulation therapy with Coumadin, probable coronary artery disease, angina pectoris, diastolic left ventricular dysfunction with clinical class 0 [place] [employer] classification left ventricular failure, hypertensive cardiovascular disease, and hypercholesterolemia. Was admitted to [facility] after sustaining a fall/accidental fall and was noted to have left lower extremity hematoma without any clear evidence of compartment syndrome. Patient received blood transfusion for profound anemia noted with the above-noted bleed/hematoma. Cardiovascular evaluation was requested to address re-anticoagulation. Patient denies any palpitations. Patient denies any chest discomfort. Patient denies any dyspnea, orthopnea, paroxysmal or nocturnal dyspnea, or peripheral edema. Patient denies any dizziness, lightheadedness, or syncope. Patient denies any fatigue or tiredness. Patient currently is reporting left lower extremity discomfort related to the above-noted hematoma. PAST MEDICAL HISTORY: Persistent atrial fibrillation on chronic anticoagulation therapy, coronary artery disease, angina pectoris, diastolic left ventricular dysfunction with class 0 [place] [employer] classification left ventricular failure, hypertensive cardiovascular disease, hypercholesterolemia. SOCIAL HISTORY: Denies smoking. FAMILY HISTORY: No history of coronary artery disease. ALLERGIES: PENICILLIN. MEDICAL THERAPY: Currently includes acetaminophen 650 mg every 6 hours as needed, Lipitor 10 mg once a day, carvedilol 25 mg twice a day, Colace 300 mg once a day, Lovenox 120 mg subcutaneously twice a day, lisinopril 20 mg once a day, MiraLAX 17 g twice daily. REVIEW OF SYSTEMS: Head and Neck: Denies headache, photophobia, blurring of vision. Respiratory: No cough or sputum production. Cardiovascular: As noted above. Gastrointestinal: Denies nausea, vomiting, diarrhea, abdominal discomfort. Genitourinary: No symptoms reported. Musculoskeletal: Left lower extremity discomfort. PHYSICAL EXAMINATION: Vital Signs: Blood pressure 146/83 mmHg, pulse rate is 96 beats per minute. Head and Neck: Pupils equal, reactive to light and accommodation. Extraocular muscles are intact. Anicteric sclerae. Negative JVD. No bruits appreciated. Chest: Clear to auscultation, percussion. Cardiovascular: S1, S2. Regularly irregular. No murmurs, clicks, or gallops. Abdomen: Soft, benign. Normoactive bowel sounds. Extremities: Left lower extremity ecchymosis. Hematoma. Edema noted. CBC revealed white cell count 7.2, hemoglobin 9.4, platelets 212. Basic metabolic profile revealed sodium 139, potassium 3.6, BUN 17, creatinine 0.8, glucose 141. ASSESSMENT: 1. Accidental fall complicated by left lower extremity hematoma. No evidence of compartment syndrome post transfusion. 2. Coronary artery disease, angina pectoris. 3. Diastolic left ventricular dysfunction with clinical class 0 [place] [employer] classification left ventricular failure. 4. Persistent atrial fibrillation, CHADS VASc score of 2 on anticoagulation therapy on Coumadin, supratherapeutic international normalized ratio, resolved. 5. Hypertension. 6. Hypercholesterolemia. 7. Anemia related to the above-noted bleed. RECOMMENDATION: 1. Continue therapy. 2. Continuation of lisinopril therapy. 3. Continuation of Lipitor therapy. 4. Since no intervention is planned, recommend resumption of anticoagulation therapy with Eliquis in view of the above-noted unstable INR and discontinue Lovenox therapy. 5. Monitor hemoglobin level and transfuse as needed. 6. Follow up in the office post discharge with Dr. Kvng Almaguer. Above was reviewed in detail with the patient. Thank you for kind referral. SHEMAR LITTLE M.D. [id number]
[2019-09-28 14:08] VITALS: BP 120/64; PULSE 98; TEMP 98.7
== END 2019-09-28 17:58 | disposition home or self-care (01) | DRG 605 ==
LOC: FER 16:52 → FM/S 23:48 → UNDOADMIN 09-22 00:03 → FM/S 09-22 00:03
PROVIDERS: ADMIT Internal Medicine; ATTEND Nurse Practitioner Acute Care
PROC: 30233N1 Transfusion of Nonautologous Red Blood Cells into Peripheral Vein, Percutaneous Approach (ICD-10-PCS; principal; 2019-09-23)
DX: S30.0XXA Contusion of lower back and pelvis, initial encounter (principal); D62 Acute posthemorrhagic anemia; D68.9 Coagulation defect, unspecified; I48.19 Other persistent atrial fibrillation; T45.515A Adverse effect of anticoagulants, initial encounter; W19.XXXA Unspecified fall, initial encounter; Y93.9 Activity, unspecified; Y92.9 Unspecified place or not applicable; Y99.9 Unspecified external cause status; I25.119 Atherosclerotic heart disease of native coronary artery with unspecified angina pectoris; I10 Essential (primary) hypertension; E78.5 Hyperlipidemia, unspecified
CPT/HCPCS: 36415; 36430; 36511; 70450-TC; 72193-TC; 73523-TC-FY; 73700-TC-RT; 80048; 80053; 80076; 80307; 82272; 82550; 82553; 83735; 84100; 84484; 85025; 85027; 85610; 85730; 86850; 86900; 86901; 86922; 93005; 93971-TC; 97116-GP; 97162-GP; 99283-25; J0131; J7030; P9038; P9058; Q9967

== ENCOUNTER 2021-01-31 11:59 | Day surgery (SDC) | payer OTHER ==
[2021-01-25 11:26] VITALS: BMI 32.3
[2021-01-31] MEDS ORDERED: MIDAZOLAM HCL 2 MG/2 ML SINGLE DOSE VIAL ONE (13:03)
[2021-01-31] MEDS ORDERED: LIDOCAINE HCL 2% (50ML VIAL) NR ONE ×2 (13:15)
[2021-01-31] MEDS ORDERED: LIDOCAINE HCL 2% (20ML MULTI-DOSE VIAL) ONE (13:26)
[2021-01-31 15:16] VITALS: BP 148/90
[2021-01-31 15:35] VITALS: PULSE 80; TEMP 97.9
== END 2021-01-31 15:35 | disposition home or self-care (01) ==
LOC: FASU 11:59
PROVIDERS: ATTEND Orthopaedic Surgery Hand Surgery
PROC: 0JBJ0ZZ Excision of Right Hand Subcutaneous Tissue and Fascia, Open Approach (ICD-10-PCS; principal; 2021-01-31 13:30)
DX: L98.0 Pyogenic granuloma (principal)
CPT/HCPCS: 88307-TC

== ENCOUNTER 2023-11-27 07:35 | Day surgery (SDC) | payer OTHER, MEDICARE ==
[2023-11-21 13:15] VITALS: BMI 32.3
[2023-11-27] MEDS ORDERED: PROPOFOL 40 ML ONE (08:02)
[2023-11-27] MEDS ORDERED: LIDOCAINE HCL/PF 2% SDV 5ML VIAL ONE (08:02)
[2023-11-27 08:57] VITALS: TEMP 97.4
[2023-11-27 09:01] VITALS: BP 148/84; PULSE 68; RESP 18
== END 2023-11-27 09:05 | disposition home or self-care (01) ==
LOC: FASU-ENDO 07:35
PROVIDERS: ATTEND Internal Medicine Gastroenterology
PROC: 0DBL8ZX Excision of Transverse Colon, Via Natural or Artificial Opening Endoscopic, Diagnostic (ICD-10-PCS; principal; 2023-11-27 08:13)
DX: Z12.11 Encounter for screening for malignant neoplasm of colon (principal); D12.2 Benign neoplasm of ascending colon; K63.5 Polyp of colon; K57.30 Diverticulosis of large intestine without perforation or abscess without bleeding; Z86.010 Personal history of colon polyps; Z80.0 Family history of malignant neoplasm of digestive organs
CPT/HCPCS: 88305-TC